=== PATIENT | male | born 1995 ===

== ENCOUNTER 2022-04-15 13:11 | Outpatient (CLI) | payer OTHER | END 2022-04-15 13:12 | disposition home or self-care (01) | LOC: CSHULT 13:11 | PROVIDERS: ATTEND Chiropractor | DX: I25.9 Chronic ischemic heart disease, unspecified (principal); I51.7 Cardiomegaly; I34.0 Nonrheumatic mitral (valve) insufficiency | CPT/HCPCS: 93306 ==